=== PATIENT | born 1965 | race Caucasian/White ===

== ENCOUNTER 2020-06-15 04:23 | Emergency (ER) | payer SELFPAY ==
[~2020-06-15] VITALS: Ht 157.5 cm; Wt 97.7 kg
[2020-06-15 04:27] VITALS: Ht 157.5 cm; Wt 97.7 kg
[2020-06-15] MEDS ORDERED: NEXIUM20 MG PO (04:28)
[2020-06-15] MEDS ORDERED: CELEXA10 MG PO (04:28)
[2020-06-15 05:08] LABS: BASOPHILS 0.5 % (0.0-2); EOSINOPHILS 1.7 %; HEMATOCRIT 46.6 % (36.0-48.0); HEMOGLOBIN 14.9 g/dL (12.0-16.0); IMMATURE GRANULOCYTES 0.3 % (0-5); LYMPHOCYTES 38.5 % (15-50); MCH 28.5 pg (26.0-34.0); MCV 89.3 fL (80.0-100.0); MEAN PLATELET VOLUME 10.4 fL (7.4-10.4); MONOCYTES 5.8 % (2-11); NEUTROPHILS 53.2 % (40-80); PLATELET COUNT 212 10x3/uL (130-400); RBC 5.22 10x6/uL (4.20-6.10); RDW 14.4 % (11.5-14.5); WBC 7.8 10x3/uL (4.8-10.8)
[2020-06-15] MEDS ORDERED: TRUVADA 200 MG1 EACH PO (05:12)
[2020-06-15] MEDS ORDERED: TIVICAY50 MG PO (05:12)
[2020-06-15 05:21] LABS: CALC OSMOLALITY 274 mosm/kg (275-300); CALCIUM 9.2 mg/dL (8.5-10.1); CARBON DIOXIDE 27.6 mmol/L (21.0-32.0); CHLORIDE - SERUM 107 mmol/L (98-107); CREATININE - SERUM 0.8 mg/dL (0.6-1.3); GLUCOSE 98 mg/dL (74-106); POTASSIUM - SERUM 3.3 mmol/L (3.5-5.1); SODIUM 138 mmol/L (136-145); UREA NITROGEN 10 mg/dL (7-18)
[2020-06-15 05:26] LABS: ALBUMIN 3.5 g/dL (3.4-5.0); ALKALINE PHOSPHATASE 111 U/L (30-120); ALT (SGPT) 21 U/L (10-68); BILIRUBIN - TOTAL 0.26 mg/dL (0.2-1.3); PROTEIN - SERUM 7.2 g/dL (4.6-7.0)
[2020-06-15 05:36] VITALS: BP 166/107
[2020-06-17 10:13] LABS: HEPATITIS C ANTIBODY 0.2 S/CO RAT (0.0-0.9)
== END 2020-06-15 05:36 | disposition home or self-care (01) ==
LOC: D.ER 04:23
PROVIDERS: Family Medicine
DX: T14.90XA Injury, unspecified, initial encounter (principal); W46.0XXA Contact with hypodermic needle, initial encounter